=== PATIENT | female | born 1975 | race Caucasian/White ===

== ENCOUNTER 2016-03-04 01:19 | Observation (INO) | payer BC ==
--- NOTE | 2016-03-04 16:08 | US ---
Limited OB ultrasound, late. History: Evaluate for placenta previa. In labor. Technique: Limited sonographic examination demonstrates a single fetus in vertex presentation. Amniot ic fluid volume is decreased compatible with rupture of membranes. The placenta is located well away from the internal os by 14 cm, without features of previa or abruption. Limited survey examination of the heart, stomach, and urinary bladder appear normal. Kidneys are nonobstructed. heart rate is 127 bpm. Impression: No evidence of placenta previa. Results called to the patient's nurse at 2:20 AM..
== END 2016-03-04 02:46 | disposition home or self-care (01) ==
LOC: INTOOBSV 01:19 → FLD 01:19
PROVIDERS: ADMIT Midwife; ATTEND Midwife
DX: Z03.89 Encounter for observation for other suspected diseases and conditions ruled out (principal); Z3A.00 Weeks of gestation of pregnancy not specified
CPT/HCPCS: 76816; G0378

== ENCOUNTER 2016-03-04 08:25 | Inpatient (IN) | payer BC ==
[2016-03-04] MEDS ORDERED: LIDOCAINE 1% 30 ML SDV SC PRN (08:53)
[2016-03-04] MEDS ORDERED: IBUPROFEN 600 MG TAB PO PRN (08:53)
[2016-03-04] MEDS ORDERED: LR 1,000 ML IV PRN (08:53)
[2016-03-04] MEDS ORDERED: TERBUTALINE SULFATE 1 MG/ML VIAL IV PRN (08:53)
[2016-03-04] MEDS ORDERED: MINERAL OIL 60 ML OIL TP PRN (08:53)
[2016-03-04] MEDS ORDERED: OXYTOCIN/RINGERS LACTATE 1,000 ML IV PRN (08:53)
[2016-03-04] MEDS ORDERED: EPSOM SALT 454 GM TP PRN (08:53)
[2016-03-04 09:11] LABS: % IMMATURE GRANULYOCYTES 0.4 % (0.0-1.1); ABSOLUTE IMMATURE GRANULOCYTES 0.06 10^3/uL (0.00-0.10); ADD DIFF? NO; ADD MORPH? NO; ADD SCAN? NO; ATYPICAL LYMPHOCYTE FLAG 0 (0-99); FRAGMENT RBC FLAG 0 (0-99); HEMATOCRIT 35.9 % (38.0-47.0); HEMOGLOBIN 12.4 g/dL (12.6-16.3); LEFT SHIFT FLG 0 (0-99); LIPEMIA HEMOLYSIS FLAG 90 (0-99); MEAN CELL HEMOGLOBIN 33.5 pg (27.9-34.1); MEAN CELL HEMOGLOBIN CONCENTR. 34.5 g/dL (32.4-36.7); MEAN PLATELET VOLUME 9.9 fL (8.7-11.7); PLATELET CLUMPS FLAG 0 (0-99); PLATELET COUNT 181 10^3/uL (150-400); RED CELL DISTRIBUTION WIDTH 13.2 % (11.5-15.2)
[2016-03-04] MEDS: AMPICILLIN SODIUM 1 GM in NS 100 ML IV SCH ×2 (09:28→15:27)
[2016-03-04] MEDS ORDERED: LIDOCAINE 1% 30 ML SDV ONE ×2 (09:33→09:40)
[2016-03-04] MEDS ORDERED: MISOPROSTOL 200 MCG TAB ONE (09:33)
[2016-03-04] MEDS ORDERED: AMMONIA AROMATIC 1 EACH AMP IH ONE ×2 (09:33→09:40)
[2016-03-04] MEDS ORDERED: OXYTOCIN 10 UNIT/ML VIAL ONE (09:40)
--- NOTE | 2016-03-04 10:28 | PDGENHP ---
History and Physical - History of Present Illness Patient is a 40 yo at 39w0d, transfer via ambulance from center for vaginal bleeding during labor. Labor started about 11 pm last night. Last night she had some bleeding and the printer repair technician taking care of her thought she felt the edge of the placenta, so the patient was brought to [facility], and an US was completed showing there was no placenta previa, and in fact the placenta was far away from the cervix. Of note it was also believed she was SROMed at this time. She was transferred back to the center, however this morning she had a gush of blood, about 200 ml, and the decision was made to bring her back to the hospital for the remainder of the labor. She is feeling well, baby is active. Denies abdominal pain in between contractions. Prior uncomplicated of a 7# baby, this one feels a little larger. is otherwise uncomplicated. AMA, s/p normal NIPT and anatomy US. Rh pos, remainder of labs reviewed and WNL apart from GBS positive. PMH/PSH/SH/FH reviewed, non contributory. Currently on PNV and additional supplements, no other medications. History Information - Allergies/Home Medication List Allergies/Adverse Reactions: No Known Allergies Allergy (Unverified 08/03/10 16:26) I have personally reviewed and updated: family history, medical history, social history, surgical history Physical Exam Physical Exam: SVE: 3.5 cm/70/-2/vtx/BBOW dark watery blood expressed at time of SVE FHR baseline 140s-150s, moderate marisol, + accels, no decels [place]: q3-6 minutes vital signs reviewed, WNL, see intellispace Constitutional: no apparent distress Ears, Nose, Mouth, Throat: moist mucous membranes Cardiovascular: regular rate and rhythym Respiratory: no respiratory distress Gastrointestinal: soft, non-tender abdomen Skin: warm, normal color Musculoskeletal: full muscle strength Neurologic: AAOx3 Psychiatric: interacting appropriately, not anxious, thought process linear Lab Data & Imaging Review 03/04/16 08:50 WBC 13.48 10^3/uL (3.80-9.50) H 03/04/16 08:50 RBC 3.70 10^6/uL (4.18-5.33) L 03/04/16 08:50 Hgb 12.4 g/dL (12.6-16.3) L 03/04/16 08:50 Hct 35.9 % (38.0-47.0) L 03/04/16 08:50 MCV 97.0 fL (81.5-99.8) 03/04/16 08:50 MCH 33.5 pg (27.9-34.1) 03/04/16 08:50 MCHC 34.5 g/dL (32.4-36.7) 03/04/16 08:50 RDW 13.2 % (11.5-15.2) 03/04/16 08:50 Plt Count 181 10^3/uL (150-400) 03/04/16 08:50 MPV 9.9 fL (8.7-11.7) 03/04/16 08:50 Neut % (Auto) 82.3 % (39.3-74.2) H 03/04/16 08:50 Lymph % (Auto) 11.9 % (15.0-45.0) L 03/04/16 08:50 Braxton % (Auto) 5.2 % (4.5-13.0) 03/04/16 08:50 Eos % (Auto) 0.1 % (0.6-7.6) L 03/04/16 08:50 Baso % (Auto) 0.1 % (0.3-1.7) L 03/04/16 08:50 Nucleat RBC Rel Count 0.0 % (0.0-0.2) 03/04/16 08:50 Absolute Neuts (auto) 11.09 10^3/uL (1.70-6.50) H 03/04/16 08:50 Absolute Lymphs (auto) 1.60 10^3/uL (1.00-3.00) 03/04/16 08:50 Absolute Monos (auto) 0.70 10^3/uL (0.30-0.80) 03/04/16 08:50 Absolute Eos (auto) 0.01 10^3/uL (0.03-0.40) L 03/04/16 08:50 Absolute Basos (auto) 0.02 10^3/uL (0.02-0.10) 03/04/16 08:50 Absolute Nucleated RBC 0.00 10^3/uL (0-0.01) 03/04/16 08:50 Immature Gran % 0.4 % (0.0-1.1) 03/04/16 08:50 Immature Gran # 0.06 10^3/uL (0.00-0.10) 03/04/16 08:50 Patient ABO/Rh O POSITIVE 03/04/16 08:50 Antibody Screen NEGATIVE 03/04/16 08:50 Assessment & Plan Assessment: 39w0d, active labor of vertex prieto status reassuring GBS positive Possible partial abruption, currently hemodynamically stable Plan: Keep in hospital for remainder of labor and delivery IV ampicillin Weigh chux, monitor bleeding closely. Repeat CBC prn Continuous monitoring At this time OK for expectant management. Reviewed if signs of distress or ongoing heavy bleeding would possibly need emergent delivery, she agrees to this if it becomes indicated. Also discussed that in the event of no progress in labor would recommend AROM of forebag and possibly pitocin. She and her (and printer repair technician Lesley) are all present and agree with plan. All questions answered.
[2016-03-04] MEDS ORDERED: METHYLERGONOVINE MAL 0.2 MG/ML INJ ONE (13:09)
--- NOTE | 2016-03-04 13:25 | OBPROC ---
- Labor and Delivery Onset of Contractions Date: 03/03/16 Onset of Contractions Time: 23:00 Onset of Contractions Type: Spontaneous Rupture of Membranes Date: 03/04/16 Rupture of Membranes Type: Spontaneous Amniotic Fluid Color: Bloody Delivery Type: Spontaneous Placenta Delivery Date: 03/04/16 Placenta Delivery Time: 13:04 Episiotomy/Laceration: 1st Degree Repair: 3-0 Complications: Post Hemorrhage, Other (Specify) (placental abruption) - Medications Labor Augmentation/Induction Meds Used: None, Other (Specify) (methergine for atony ) - [place] Info Infant A Delivery Date: 03/04/16 Delivery Time: 12:58 Sex of : Male Score (1 Min): 8 Score (5 Min): 9
[2016-03-04] MEDS ORDERED: HYDROCODONE/APAP 5/325 TAB PO PRN (13:29)
[2016-03-04] MEDS ORDERED: DOCUSATE SODIUM 100 MG CAP PO PRN (13:29)
[2016-03-04] MEDS ORDERED: HYDROCORTISONE 0.5% CREAM TP PRN (13:29)
[2016-03-04] MEDS ORDERED: SIMETHICONE 80 MG TAB CHEW PO PRN (13:29)
[2016-03-04] MEDS ORDERED: OXYTOCIN/RINGERS LACTATE 1,000 ML IV SCH (13:30)
[2016-03-04] MEDS ORDERED: IBUPROFEN 600 MG TAB PO ONE (13:38)
[2016-03-04] MEDS: IBUPROFEN 600 MG TAB PO PRN ×2 (13:43→19:48)
[2016-03-04 20:24] VITALS: RESP 17; O2SAT 95
[2016-03-05] MEDS: IBUPROFEN 600 MG TAB PO PRN ×2 (04:11→10:45)
--- NOTE | 2016-03-05 08:49 | OBPROG ---
OBG Progress Note Assessment/Plan: Assessment: Pt is a 40 y/o female PPD#1 s/p - doing great, desires to go home Plan: 1) Routine PP care 2) Abruption - EBL 750cc, HCT 34 this AM, asymptomatic, stable for discharge 3) O+/RI 4) F/U for routine PP w/ center. No RX desired for pain. 03/05/16 08:47 Subjective: No complaints, ambulating, voiding spontaneously, pain well controlled w/ ibuprofen. Objective: 03/04/16 18:25 Patient ABO/Rh O POSITIVE 03/04/16 08:50 Temp Pulse Resp BP Pulse Ox 36.6 C 100 17 102/57 L 95 03/04/16 20:00 03/04/16 20:00 03/04/16 20:00 03/04/16 20:00 03/04/16 20:00 Uterine Position/Fundal Height: Umbilicus -1 Uterine Tone: Firm ICD10 Worksheet Patient Problems: Problems Problem Status Diagnosed Placental abruption, delivered Acute (spontaneous vaginal delivery) Acute - ICD10 Problem Qualifiers (1) (spontaneous vaginal delivery) (2) Placental abruption, delivered
[2016-03-05 10:36] VITALS: BP 96/62; PULSE 93; TEMP 98.1
== END 2016-03-05 15:35 | disposition home or self-care (01) | DRG 774 ==
LOC: EDUNIT# → FLD 08:31 → EDSTATUS 08:36 → FOB 16:32
PROVIDERS: ADMIT Obstetrics & Gynecology; ATTEND Obstetrics & Gynecology
PROC: 10E0XZZ Delivery of Products of Conception, External Approach (ICD-10-PCS; principal; 2016-03-04)
PROC: 0HQ9XZZ Repair Perineum Skin, External Approach (ICD-10-PCS; principal; 2016-03-04)
DX: O45.93 Premature separation of placenta, unspecified, third trimester (principal); O72.1 Other immediate postpartum hemorrhage; O70.0 First degree perineal laceration during delivery; Z37.0 Single live birth; O99.824 Streptococcus B carrier state complicating childbirth; O09.523 Supervision of elderly multigravida, third trimester; Z3A.39 39 weeks gestation of pregnancy
CPT/HCPCS: J0290; J2210; J2590; J3105